=== PATIENT | female | born 1980 | race Caucasian/White ===

== ENCOUNTER 2016-07-25 00:44 | Emergency (ER) | payer BC ==
[~2016-07-25] VITALS: Ht 167.6 cm; Wt 66.7 kg
[~2016-07-25 00:44] MED LIST: ADDE30TA PO; ALBU.5I INH; ALBU6.7H INH; CLON.5 PO; LEXA20TA PO; MONT10TA2 PO; PRED20 PO; SYMB160A INH; THEO300T31 PO; ZITH250T PO
[2016-07-25] MEDS ORDERED: ADDE30XR PO (01:08)
[2016-07-25] MEDS ORDERED: DULE200A INH (01:08)
[2016-07-25] MEDS ORDERED: MONT10TA2 PO (01:08)
[2016-07-25 01:10] VITALS: BP 122/87; PULSE 98; RESP 18; TEMP 98.8; O2SAT 100
--- NOTE | 2016-07-25 02:07 | PD ---
HPI Chief Complaint: Cold / Flu Symptoms Time Seen by Provider: 01:55 Travel History International Travel<30 days: No Contact w/Intl Traveler<30days: No Traveled to known affect area: No History of Present Illness HPI The patient is a 36-year-old female that complains of persistent cough/ congestion for 3 days. She denies any fever. She does have a history of asthma and she has been wheezing. She is very anxious and was too anxious to go to sleep. She does have some back pain on the right and she wants to know if she might have pneumonia because this was a symptom she had earlier with pneumonia. She does not smoke. She is not sexually active. She does have a history of ADHD and is on Adderall. She states she ran out of her albuterol for her nebulizer machine. PFSH Past Medical History ADHD: Yes Asthma: Yes Anxiety: Yes Diminished Hearing: No Respiratory: Yes Immunizations Current: No Tetanus Vaccination: Unknown Influenza Vaccination: No ?: Not LMP: 06/30/16 : 0 Social History Alcohol Use: No Tobacco Use: No (QUIT 2 YRS AGO) Substance Use: No Allergies-Medications (Allergen,Severity, Reaction): Coded Allergies: Common Ragweed (Unverified Allergy, Severe, Sneezing, 07/25/16) Reported Meds & Prescriptions Reported Meds & Active Scripts Active Prednisone 50 Mg Tab 50 Mg PO BID Zithromax (Azithromycin) 500 Mg Tab 500 Mg PO DAILY 5 Days Keflex (Cephalexin) 500 Mg Cap 500 Mg PO Q8H Proair Hfa 8.5 GM Inh (Albuterol Sulfate) 90 Mcg/Act Aer 2 Puff INH Q4-6H PRN 108 mcg/actuation Albuterol Neb (Albuterol Sulfate) 2.5 Mg/3 Ml Neb 2.5 Mg NEB QID NEB Reported Adderall Xr 24 HR (Amphetamine/Dextroamphetamine) 30 Mg Cap 30 Mg PO BID Once daily in the morning. Dulera 120 Act Inh (Mometasone-Formoterol 120 Act Inh) 200-5 Mcg/Act Inh 2 Puff INH BID Singulair (Montelukast Sodium) 10 Mg Tab 10 Mg PO HS Review of Systems Except as stated in HPI: all other systems reviewed are Neg Physical Exam Narrative GENERAL: The patient is anxious, alert and minimal respiratory distress. Her vital signs show blood pressure 142/87 but are otherwise normal. SKIN: Warm and dry. HEAD: Atraumatic. Normocephalic. EYES: Pupils equal and round. No scleral icterus. No injection or drainage. ENT: No nasal bleeding or discharge. Mucous membranes pink and moist. NECK: Trachea midline. No JVD. CARDIOVASCULAR: Regular rate and rhythm. No murmur appreciated. RESPIRATORY: No accessory muscle use. A few widely scattered wheezes are heard in all lung pineda.. Breath sounds equal bilaterally. GASTROINTESTINAL: Abdomen soft, non-tender, nondistended. Hepatic and splenic margins not palpable. MUSCULOSKELETAL: No obvious deformities. No clubbing. No cyanosis. No edema. NEUROLOGICAL: Awake and alert. No obvious cranial nerve deficits. Motor grossly within normal limits. Normal speech. PSYCHIATRIC: Appropriate mood and affect; insight and judgment normal. Data Data Last Documented VS Vital Signs Date Time Temp Pulse Resp B/P Pulse Ox O2 Delivery O2 Flow Rate FiO2 07/25/16 02:16 96 18 113/77 96 Room Air 07/25/16 01:10 98.8 Orders Albuterol-Ipratropium Neb (Duoneb Neb) (07/25/16 02:15) Prednisone (Deltasone) (07/25/16 02:15) Chest, Pa & Lat (07/25/16 02:02) Blood Culture (07/25/16 02:49) Ceftriaxone Inj (Rocephin Inj) (07/25/16 03:00) Azithromycin (Zithromax) (07/25/16 03:00) MDM Medical Decision Making Medical Screen Exam Complete: Yes Emergency Medical Condition: Yes Medical Record Reviewed: Yes Interpretation(s) The chest x-ray shows a right upper lobe pneumonia. Differential Diagnosis Anxiety reaction, acute asthma, pneumonia, bronchitis Narrative Course The patient has a right upper lobe pneumonia. She is also quite anxious. She was offered admission but strongly declined. She is told that she is welcome to return if she wants to be admitted at a later time if she finds that she is not doing well at home. We gave her Rocephin 1 g IV as well as Zithromax 500 mg by mouth here. She will continue at home with Keflex 500 mg 3 times daily for 10 days and Zithromax 500 mg daily for 5 days. She should follow-up with her primary care physician this week. Diagnosis Primary Impression: Right upper lobe pneumonia Additional Impression: Anxiety Additional Instructions: You should follow-up with your primary care physician this week. The Keflex is 3 times daily for 10 days and the Zithromax is one tablet daily for 5 days. The prednisone is one tablet twice daily for 4 days followed by one tablet once daily for 4 days. If worse, return to the emergency department. Med/Other Pt SpecificInfo: Prescription(s) given Scripts Prednisone 50 Mg Tab50 Mg PO BID #12 TAB Ref 0 Prov:Tim Watson MD 07/25/16 Azithromycin (Zithromax)500 Mg [id number] Mg PO DAILY 5 Days Ref 0 Prov:Tim Watson MD 07/25/16 Cephalexin (Keflex)500 Mg [id number] Mg PO Q8H #30 CAP Ref 0 Prov:Tim Watson MD 07/25/16 Albuterol 8.5 GM Inh (Proair Hfa 8.5 GM Inh)90 Mcg/Act Aer2 Puff INH Q4-6H PRN ( SHORTNESS OF BREATH) #1 INHALER Ref 0 108 mcg/actuation Prov:Tim Watson MD 07/25/16 Albuterol Neb 2.5 Mg/3 Ml Neb2.5 Mg NEB QID NEB #60 NEBULE Ref 0 Prov:Tim Watson MD 07/25/16 Disposition: 01 DISCHARGE HOME Condition: Stable Tim Watson MD Jul 25, 2016 02:07
[2016-07-25] MEDS ORDERED: ALBU0.08 NEB (02:09)
[2016-07-25] MEDS ORDERED: predniSONE 20 MG TAB PO ONE (02:15)
[2016-07-25 02:16] VITALS: BP 113/77; PULSE 96; RESP 18; O2SAT 96
[2016-07-25] MEDS: RESP: ALBUTEROL 2.5 MG/IPRATROPIUM 0.5 MG NEB (SCH) INH (02:21)
--- NOTE | 2016-07-25 02:32 | RADHPO ---
EXAM DATE/TIME: 07/25/2016 02:05 [facility] COMPARISON: No previous studies available for comparison. INDICATIONS : Patient states cough. MEDICAL HISTORY : Asthma SURGICAL HISTORY : None. ENCOUNTER: Initial ACUITY: 3 days PAIN SCORE: 0/10 LOCATION: Bilateral chest FINDINGS: PA and lateral views of the chest show subtle opacity within the right upper lobe. Remaining lungs ar e clear. Lungs are hyperaerated. No effusions. Heart is normal in size. Bony structures are unremarka ble. CONCLUSION: Right upper lobe infiltrate. Hyperaeration. Sourav Tran Jr., MD on July 25, 2016 at 2:30 Board Certified Radiologist. This report was verified electronically.
[2016-07-25] MEDS ORDERED: ALBUAER3 INH (02:52)
[2016-07-25] MEDS ORDERED: ZITH500T PO (02:52)
[2016-07-25] MEDS ORDERED: CEPH-460 PO (02:52)
[2016-07-25] MEDS ORDERED: PRED50 PO (02:55)
[2016-07-25] MEDS ORDERED: cefTRIAXone INJ 1,000 MG in SODIUM CHLORIDE 0.9% INJ 100 ML IV ONE (03:00)
[2016-07-25] MEDS ORDERED: AZITHROMYCIN 250 MG TAB PO ONE (03:00)
[2016-07-25 03:11] VITALS: BP 116/74; PULSE 94; RESP 18; O2SAT 96
== END 2016-07-25 03:49 | disposition home or self-care (01) ==
LOC: PHED 00:44
DX: J18.9 Pneumonia, unspecified organism (principal); F41.9 Anxiety disorder, unspecified; J45.909 Unspecified asthma, uncomplicated
CPT/HCPCS: 71020; 87040; 94640; 94664; 96365; 99283; J0696; J7512

== ENCOUNTER 2016-09-24 12:01 | Emergency (ER) | payer BC ==
[~2016-09-24 12:01] MED LIST changes: -ADDE30TA PO; +ADDE30XR PO; -ALBU.5I INH; +ALBU0.08 NEB; -ALBU6.7H INH; +ALBUAER3 INH; +CEPH-460 PO; -CLON.5 PO; +DULE200A INH; -LEXA20TA PO; -PRED20 PO; +PRED50 PO; -SYMB160A INH; -THEO300T31 PO; -ZITH250T PO; +ZITH500T PO
[2016-09-24 12:32] VITALS: BP 116/79; PULSE 98; RESP 18; TEMP 98.7; O2SAT 98
[2016-09-24] MEDS ORDERED: ZYRT10CA PO (13:05)
--- NOTE | 2016-09-24 13:25 | PD ---
HPI Chief Complaint: Cold / Flu Symptoms Time Seen by Provider: 13:18 Travel History International Travel<30 days: No Contact w/Intl Traveler<30days: No Traveled to known affect area: No History of Present Illness HPI 36-year-old female with asthma presents for evaluation of cough and low-grade fevers. Symptoms started 5 days ago. The cough is productive. She reports that the maximum temperature that she has recorded as 99.8. She has been using her albuterol medication with some relief. Denies recent travel. She does not use tobacco products. It appears that this patient was treated for a right upper lobe pneumonia here in July. She has no other complaints. PFSH Past Medical History ADHD: Yes Asthma: Yes Anxiety: Yes Diminished Hearing: No Psychiatric: Yes (ADD) Respiratory: Yes Immunizations Current: No ?: Not : 0 Social History Alcohol Use: Yes (OCC) Tobacco Use: No (QUIT 2 YRS AGO) Substance Use: No Allergies-Medications (Allergen,Severity, Reaction): Coded Allergies: Common Ragweed (Unverified Allergy, Severe, Sneezing, 09/24/16) Reported Meds & Prescriptions Reported Meds & Active Scripts Active Reported Zyrtec Allergy (Cetirizine HCl) 10 Mg Cap 10 Mg PO DAILY Adderall Xr 24 HR (Amphetamine/Dextroamphetamine) 30 Mg Cap 30 Mg PO BID Once daily in the morning. Dulera 120 Act Inh (Mometasone-Formoterol 120 Act Inh) 200-5 Mcg/Act Inh 2 Puff INH BID Singulair (Montelukast Sodium) 10 Mg Tab 10 Mg PO HS Review of Systems Except as stated in HPI: all other systems reviewed are Neg Physical Exam Narrative GENERAL: Well developed well-nourished female in no acute distress SKIN: Warm and dry. HEAD: Atraumatic. Normocephalic. EYES: Pupils equal and round. No scleral icterus. No injection or drainage. ENT: No nasal bleeding or discharge. Mucous membranes pink and moist. No oral pharyngeal erythema or exudate. NECK: Trachea midline. No JVD. No no lymphadenopathy. CARDIOVASCULAR: Regular rate and rhythm. No murmur appreciated. RESPIRATORY: No accessory muscle use. Diffuse wheezing. GASTROINTESTINAL: Abdomen soft, non-tender, nondistended. Hepatic and splenic margins not palpable. MUSCULOSKELETAL: No obvious deformities. No clubbing. No cyanosis. No edema. Data Data Last Documented VS Vital Signs Date Time Temp Pulse Resp B/P Pulse Ox O2 Delivery O2 Flow Rate FiO2 09/24/16 12:32 98.7 98 18 116/79 98 Orders Chest, Single Ap (09/24/16 ) Influenzae A/B Antigen (09/24/16 13:22) Prednisone (Deltasone) (09/24/16 13:30) Albuterol-Ipratropium Neb (Duoneb Neb) (09/24/16 13:30) MDM Medical Decision Making Medical Screen Exam Complete: Yes Emergency Medical Condition: Yes Medical Record Reviewed: Yes Differential Diagnosis Asthma exacerbation, influenza, pneumonia, bronchitis, reactive airway disease Narrative Course 36 year old female with 5 days of cough and low-grade fever. On examination she has diffuse wheezing. Plan is for chest x-ray, influenza antigen, prednisone and DuoNeb therapy. Chest x-ray and influenza antigen are both negative. The patient appears to be having an asthma exacerbation. The patient is being discharged with refills of her albuterol nebulizer and inhaler as well as a short course of prednisone and a refill of her singular. Diagnosis Primary Impression: Asthma exacerbation Additional Instructions: Medication as prescribed. Follow-up with primary care physician as needed. Return for any acutely new or worsening symptoms. Med/Other Pt SpecificInfo: Prescription(s) given Scripts Prednisone 20 Mg Tab20 Mg PO BID 5 Days Ref 0 Prov:Milton Bonilla MD 09/24/16 Montelukast (Singulair)10 Mg Tab10 Mg PO HS 60 Days Ref 0 Prov:Milton Bonilla MD 09/24/16 Albuterol Neb 2.5 Mg/3 Ml Neb2.5 Mg NEB Q4HR NEB #60 NEBULE Ref 0 While awake Prov:Milton Bonilla MD 09/24/16 Albuterol 8.5 GM Inh (Proair Hfa 8.5 GM Inh)90 Mcg/Act Aer2 Puff INH Q4-6H PRN ( SHORTNESS OF BREATH) #1 INHALER Ref 0 108 mcg/actuation Prov:Milton Bonilla MD 09/24/16 Disposition: 01 DISCHARGE HOME Condition: Stable Lino Montana Sep 24, 2016 13:25
[2016-09-24] MEDS ORDERED: predniSONE 20 MG TAB PO ONE (13:30)
[2016-09-24] MEDS: RESP: ALBUTEROL 2.5 MG/IPRATROPIUM 0.5 MG NEB (SCH) INH (13:38)
--- NOTE | 2016-09-24 14:08 | RADHPO ---
EXAM DATE/TIME: 09/24/2016 13:56 [facility] COMPARISON: CHEST SINGLE AP, July 14, 2014, 7:19. INDICATIONS : Cough MEDICAL HISTORY : None. SURGICAL HISTORY : None. ENCOUNTER: Initial ACUITY: 4 - 6 days PAIN SCORE: 8/10 LOCATION: Bilateral chest FINDINGS: Upright PA view of the chest demonstrates a normal-sized cardiac silhouette. No effusion, consolidati on, or pneumothorax is visualized. The bones and soft tissues demonstrate no acute abnormality. CONCLUSION: No acute cardiopulmonary abnormality is identified. Rory Belcher MD on September 24, 2016 at 14:06 Board Certified Radiologist. This report was verified electronically.
[2016-09-24] MEDS ORDERED: ALBU0.08 NEB (14:18)
[2016-09-24] MEDS ORDERED: ALBUAER3 INH (14:18)
[2016-09-24] MEDS ORDERED: PRED20 PO (14:18)
[2016-09-24] MEDS ORDERED: MONT10TA2 PO (14:18)
== END 2016-09-24 14:27 | disposition home or self-care (01) ==
LOC: PHEFT 12:01
DX: J45.901 Unspecified asthma with (acute) exacerbation (principal); Z87.891 Personal history of nicotine dependence
CPT/HCPCS: 71010; 87804; 94640; 94664; 99283; J7512

== ENCOUNTER 2017-06-06 17:55 | Emergency (ER) | payer BC ==
[~2017-06-06] VITALS: Ht 167.6 cm; Wt 61.0 kg
[~2017-06-06 17:55] MED LIST changes: -CEPH-460 PO; +PRED20 PO; -PRED50 PO; -ZITH500T PO; +ZYRT10CA PO
[2017-06-06 18:03] VITALS: BP 118/74; PULSE 98; RESP 16; TEMP 97.9; O2SAT 100
[2017-06-06] MEDS ORDERED: SYMB160A INH (18:22)
[2017-06-06] MEDS ORDERED: ADDE20XR PO (18:22)
[2017-06-06] MEDS ORDERED: XANA1TAB2 PO (18:22)
[2017-06-06] MEDS ORDERED: BACT800T5 PO (19:32)
[2017-06-06] MEDS ORDERED: MUPI2%T TOPICAL (19:32)
--- NOTE | 2017-06-06 19:33 | PD ---
HPI Chief Complaint: Skin Problem Time Seen by Provider: 18:50 Travel History International Travel<30 days: No Contact w/Intl Traveler<30days: No Traveled to known affect area: No History of Present Illness HPI 36-year-old female here for evaluation of abscess to the mons pubis 2 days. Patient reports increased pain and swelling at the site of an infected hair follicle. She denies fever or chills. She reports similar symptoms in the past with abscesses. Symptom severity is moderate. No alleviating factors. PFSH Past Medical History ADHD: Yes Asthma: Yes Anxiety: Yes Diminished Hearing: No Psychiatric: Yes (ADD) Respiratory: Yes Immunizations Current: No Tetanus Vaccination: Unknown Influenza Vaccination: No ?: Not LMP: 05/22/2017 : 0 Social History Alcohol Use: Yes (occ) Tobacco Use: No (QUIT 2 YRS AGO) Substance Use: No Allergies-Medications (Allergen,Severity, Reaction): Coded Allergies: ragweed pollen (Unverified Allergy, Severe, Sneezing, 06/06/17) Reported Meds & Prescriptions Reported Meds & Active Scripts Active Albuterol Neb (Albuterol Sulfate) 2.5 Mg/3 Ml Neb 2.5 Mg NEB Q4HR NEB While awake Proair Hfa 8.5 GM Inh (Albuterol Sulfate) 90 Mcg/Act Aer 2 Puff INH Q4-6H PRN 108 mcg/actuation Reported Symbicort Inh (Budesonide/Formoterol Fumarate) 160-4.5 Mcg/Act Aero 2 Puff INH Q12HR Xanax (Alprazolam) 1 Mg Tab 1 Mg PO Q6H PRN Adderall Xr 24 HR (Amphetamine/Dextroamphetamine) 20 Mg Cap 20 Mg PO BID Once daily in the morning. Singulair (Montelukast Sodium) 10 Mg Tab 10 Mg PO HS Review of Systems Except as stated in HPI: all other systems reviewed are Neg General / Constitutional: No: Fever Physical Exam Narrative GENERAL: Well-nourished, well-developed patient. SKIN: Focused skin assessment warm/dry. 3 cm diameter area of erythema, induration with central fluctuance on the mons pubis. HEAD: Normocephalic. EYES: No scleral icterus. No injection or drainage. NECK: Supple, trachea midline. No JVD or lymphadenopathy. CARDIOVASCULAR: Regular rate and rhythm without murmurs, gallops, or rubs. RESPIRATORY: Breath sounds equal bilaterally. No accessory muscle use. GASTROINTESTINAL: Abdomen soft, non-tender, nondistended. Data Data Last Documented VS Vital Signs Date Time Temp Pulse Resp B/P (MAP) Pulse Ox O2 Delivery O2 Flow Rate FiO2 06/06/17 18:03 97.9 98 16 118/74 (89) 100 MDM Medical Decision Making Medical Screen Exam Complete: Yes Emergency Medical Condition: Yes Differential Diagnosis Abscess, cellulitis, folliculitis Narrative Course 36-year-old female here for evaluation of abscess to her mons pubis 2 days. On exam patient has a 3 cm diameter area of erythema, induration with central fluctuance. I&D performed. Patient tolerated procedure well. Procedures Procedure Narrative INCISION AND DRAINAGE OF ABSCESS: The area was prepped and was sterilely draped. A subcutaneous wheal of 1 % Xylocaine with epi with a total number 2 mL was used to anesthetize the area properly. A number 11 scalpel was used to make a 0.5-cm incision across the area of the abscess. The abscess was drained , complex loculations were broken down, and irrigated with normal saline. Sterile dressing applied. Patient advised to have packing removed in two days. Diagnosis Primary Impression: Abscess Referrals: [facility] Additional Instructions: Apply warm compresses to the area several times per day. Take the antibiotics as prescribed. Follow up for recheck in 2 days Scripts Mupirocin Topical (Bactroban Topical) 22 Gm Cream 1 APPLIC TOPICAL BID for Mgmt Bacterial Infection, #1 TUBE 0 Refills Prov: Steffi Cuba 06/06/17 Sulfamethoxazole-Trimethoprim (Bactrim DS) 800-160 Mg Tab 1 TAB PO BID for Infection, #20 TAB 0 Refills Prov: Steffi Cuba 06/06/17 Disposition: 01 DISCHARGE HOME Condition: Stable Steffi Cuba Jun 06, 2017 19:33
[2017-06-06 19:36] VITALS: BP 115/76; TEMP 97.5
== END 2017-06-06 19:48 | disposition home or self-care (01) ==
LOC: PHED 17:55
DX: L02.214 Cutaneous abscess of groin (principal); J45.909 Unspecified asthma, uncomplicated
CPT/HCPCS: 10061

== ENCOUNTER 2017-09-04 00:37 | Emergency (ER) | payer BC ==
[~2017-09-04] VITALS: Ht 167.6 cm; Wt 60.0 kg
[~2017-09-04 00:37] MED LIST changes: +ADDE20XR PO; -ADDE30XR PO; +BACT800T5 PO; -DULE200A INH; +MUPI2%T TOPICAL; -PRED20 PO; +SYMB160A INH; +XANA1TAB2 PO; -ZYRT10CA PO
[2017-09-04 00:41] VITALS: BP 145/74; PULSE 101; RESP 18; TEMP 98.6; O2SAT 98
[2017-09-04] MEDS ORDERED: predniSONE 20 MG TAB PO ONE (01:00)
[2017-09-04] MEDS ORDERED: MONT10TA2 PO (01:01)
[2017-09-04] MEDS ORDERED: ALBUAER3 INH (01:01)
[2017-09-04] MEDS ORDERED: ALBU0.08 NEB (01:01)
[2017-09-04] MEDS ORDERED: PRED-503 PO (01:01)
[2017-09-04] MEDS ORDERED: SYMB160A INH (01:01)
--- NOTE | 2017-09-04 01:07 | PD ---
HPI Chief Complaint: Respiratory Symptoms Time Seen by Provider: 00:53 Travel History International Travel<30 days: No Contact w/Intl Traveler<30days: No Traveled to known affect area: No History of Present Illness HPI 37-year-old white female presents to emergency department with complains of shortness of breath or wheezing. Patient's symptoms of been getting worse over the past week. Patient is out of her medications currently. Patient has a history of asthma. She states that she has not been well controlled lately. She has not been followed by her primary care doctor or molecular biology professor. The patient has recently relocated to [place] from [place]. She states that she takes albuterol and SYBIQourt. She denies tobacco. She denies any recent illness. PFSH Past Medical History Narrative Medical Asthma, anxiety, ADD ADHD: Yes Asthma: Yes Anxiety: Yes Diminished Hearing: No Psychiatric: Yes (ADD) Respiratory: Yes Immunizations Current: No Tetanus Vaccination: < 5 Years ?: Not : 0 Past Surgical History Narrative Surgical Bilateral hand surgery Social History Alcohol Use: Yes (occ) Tobacco Use: No (QUIT 2 YRS AGO) Substance Use: No Allergies-Medications (Allergen,Severity, Reaction): Coded Allergies: ragweed pollen (Unverified Allergy, Severe, Sneezing, 09/04/17) Reported Meds & Prescriptions Reported Meds & Active Scripts Active Deltasone (Prednisone) 20 Mg Tab 20 Mg PO BID 5 Days Symbicort Inh (Budesonide/Formoterol Fumarate) 160-4.5 Mcg/Act Aero 2 Puff INH Q12HR Albuterol Neb (Albuterol Sulfate) 2.5 Mg/3 Ml Neb 2.5 Mg NEB Q4HR NEB While awake Proair Hfa 8.5 GM Inh (Albuterol Sulfate) 90 Mcg/Act Aer 2 Puff INH Q4-6H PRN 108 mcg/actuation Singulair (Montelukast Sodium) 10 Mg Tab 10 Mg PO HS Bactroban Topical (Mupirocin) 22 Gm Cream 1 Applic TOPICAL BID Bactrim DS (Sulfamethoxazole-Trimethoprim) 800-160 Mg Tab 1 Tab PO BID Reported Xanax (Alprazolam) 1 Mg Tab 1 Mg PO Q6H PRN Adderall Xr 24 HR (Amphetamine/Dextroamphetamine) 20 Mg Cap 20 Mg PO BID Once daily in the morning. Review of Systems Except as stated in HPI: all other systems reviewed are Neg Physical Exam Narrative GENERAL: Well-developed, well-nourished in no acute distress. Nontoxic appearing. HEAD: Normocephalic, atraumatic. EYES: Pupils equal round and reactive. Extraocular motions intact. No scleral icterus. No injection or drainage. ENT: TMs clear without erythema. The external auditory canals clear. Nose: clear . Posterior pharynx is pink and moist. No tonsillar edema or exudate. Uvula midline. Airway patent. NECK: Trachea midline.Supple, nontender, moves head freely. No central bony tenderness or spasm. CARDIOVASCULAR: Regular rate and rhythm without murmurs, gallops, or rubs. RESPIRATORY: Patient has extra wheezes. No Rales or rhonchi. Speaks in full complete sentences. GASTROINTESTINAL: Abdomen soft, non-tender, nondistended. No hepato-splenomegaly , or palpable masses. No guarding. EXTREMITIES: No clubbing, cyanosis, or edema. No joint tenderness, effusion, or edema noted. BACK: Nontender without deformity or crepitance. No flank tenderness. Data Data Last Documented VS Vital Signs Date Time Temp Pulse Resp B/P (MAP) Pulse Ox O2 Delivery O2 Flow Rate FiO2 09/04/17 00:41 98.6 101 18 145/74 (97) 98 Orders Orders Prednisone (Deltasone) (09/04/17 01:00) Albuterol-Ipratropium Neb (Duoneb Neb) (09/04/17 01:00) MDM Medical Decision Making Medical Screen Exam Complete: Yes Emergency Medical Condition: Yes Medical Record Reviewed: Yes Differential Diagnosis MDM: High Differential diagnoses: Pneumonia, bronchitis, URI, asthma, RAD, legionnaire's disease, SARS, ARDS, influenza, bronchiolitis, RSV,PE,CHF Narrative Course This is acute asthma exacerbation. Patient is given 60 mg prednisone by mouth. Patient's given 2 albuterol and Atrovent treatments. The patient is reexamined. Her wheezing is resolved. Her shortness of breath is much improved. Patient medically stable for discharge. Diagnosis Primary Impression: Asthma exacerbation Qualified Codes: J45.21 - Mild intermittent asthma with (acute) exacerbation Patient Instructions: General Instructions Additional Instructions: Rest. Increase fluids. Tylenol and Advil. Medications as directed. Follow-up with a molecular biology professor in one week. Followup with your Dr. in one week. Return to the ER for any problems. Med/Other Pt SpecificInfo: Prescription(s) given Scripts Prednisone (Deltasone) 20 Mg Tab 20 MG PO BID for 5 Days, #10 TAB 0 Refills Prov: Roxana Matute MD 09/04/17 Budesonide-Formoterol Inh (Symbicort Inh) 160-4.5 Mcg/Act Aero 2 PUFF INH Q12HR, #1 INHALER 0 Refills Prov: Roxana Matute MD 09/04/17 Albuterol Neb (Albuterol Neb) 2.5 Mg/3 Ml Neb 2.5 MG NEB Q4HR NEB for Breathing Treatment, #60 NEBULE 0 Refills While awake Prov: Roxana Matute MD 09/04/17 Albuterol 8.5 GM Inh (Proair Hfa 8.5 GM Inh) 90 Mcg/Act Aer 2 PUFF INH Q4-6H Y for SHORTNESS OF BREATH, #1 INHALER 0 Refills 108 mcg/actuation Prov: Roxana Matute MD 09/04/17 Montelukast (Singulair) 10 Mg Tab 10 MG PO HS, #30 TAB 0 Refills Prov: Roxana Matute MD 09/04/17 Disposition: 01 DISCHARGE HOME Condition: Stable Casey Chavarria Sep 04, 2017 01:07
[2017-09-04] MEDS: RESP: ALBUTEROL 2.5 MG/IPRATROPIUM 0.5 MG NEB (SCH) INH (01:16)
== END 2017-09-04 05:58 | disposition home or self-care (01) ==
LOC: NEPD 00:37
DX: J45.901 Unspecified asthma with (acute) exacerbation (principal); F41.9 Anxiety disorder, unspecified; F90.9 Attention-deficit hyperactivity disorder, unspecified type; Z79.899 Other long term (current) drug therapy
CPT/HCPCS: 94640; 94664; 99283; J7512

== ENCOUNTER 2017-11-24 03:37 | Emergency (ER) | payer BC ==
[~2017-11-24] VITALS: Ht 167.6 cm; Wt 70.5 kg
[~2017-11-24 03:37] MED LIST changes: -BACT800T5 PO
[2017-11-24 03:40] VITALS: BP 125/84; PULSE 99; RESP 18; TEMP 98.1; O2SAT 100
[2017-11-24 04:43] LABS: BACTERIA, URINE FEW /hpf; BILIRUBIN, URINE NEG (NEG); BLOOD, URINE NEG (NEG); GLUCOSE,URINE NEG (NEG); KETONE, URINE NEG (NEG); MUCUS URINE FEW /lpf (OCC); NITRITE,URINE NEG (NEG); PH, URINE 5.5 (5.0-8.5); SQUAMOUS EPITHELIAL CELL URINE 19 /hpf (0-5); TRANSITIONAL EPI CELLS, URINE <1 /hpf; URINE COLOR YELLOW (YELLW/STRAW); URINE LEUKOCYTE ESTERASE SMALL (NEG)
--- NOTE | 2017-11-24 04:49 | PD ---
HPI Chief Complaint: Flank/Kidney Pain Time Seen by Provider: 04:03 Travel History International Travel<30 days: No Contact w/Intl Traveler<30days: No Traveled to known affect area: No History of Present Illness HPI 37-year-old female complains of left flank pain. Patient states that the pain started 2 days ago. Patient states that the pain localized to left flank and left low back area. Patient denies any pain radiation. Patient states that she has urinary frequency. Patient denies any dysuria. Patient denies any vaginal discharge or bleeding. Patient states that the pain is worse with bending over movement of the low back area. Patient denies any pain radiation to the leg. Patient denies any recent injury. On a scale of 1-10 the pain is a 7. Patient denies any history kidney stone in the past. PFSH Past Medical History ADHD: Yes Asthma: Yes Anxiety: Yes Diminished Hearing: No Psychiatric: Yes (ADD) Respiratory: Yes (asthma) Immunizations Current: No ?: Unknown : 0 Social History Alcohol Use: Yes (occ) Tobacco Use: No (Vaping since 2008) Substance Use: No Allergies-Medications (Allergen,Severity, Reaction): Coded Allergies: ragweed pollen (Unverified Allergy, Severe, Sneezing, 09/04/17) Reported Meds & Prescriptions Reported Meds & Active Scripts Active Symbicort Inh (Budesonide/Formoterol Fumarate) 160-4.5 Mcg/Act Aero 2 Puff INH Q12HR Albuterol Neb (Albuterol Sulfate) 2.5 Mg/3 Ml Neb 2.5 Mg NEB Q4HR NEB While awake Proair Hfa 8.5 GM Inh (Albuterol Sulfate) 90 Mcg/Act Aer 2 Puff INH Q4-6H PRN 108 mcg/actuation Singulair (Montelukast Sodium) 10 Mg Tab 10 Mg PO HS Bactroban Topical (Mupirocin) 22 Gm Cream 1 Applic TOPICAL BID Reported Xanax (Alprazolam) 1 Mg Tab 1 Mg PO Q6H PRN Adderall Xr 24 HR (Amphetamine/Dextroamphetamine) 20 Mg Cap 20 Mg PO BID Once daily in the morning. Review of Systems General / Constitutional: No: Fever Eyes: No: Visual changes HENT: No: Headaches Cardiovascular: No: Chest Pain or Discomfort Respiratory: No: Shortness of Breath Gastrointestinal: No: Abdominal Pain Genitourinary: No: Dysuria Musculoskeletal: No: Pain Skin: No Rash Neurologic: No: Weakness Psychiatric: No: Depression Endocrine: No: Polydipsia Hematologic/Lymphatic: No: Easy Bruising Physical Exam Narrative GENERAL: Well-nourished, well-developed patient. SKIN: Focused skin assessment warm/dry. HEAD: Normocephalic. EYES: No scleral icterus. No injection or drainage. NECK: Supple, trachea midline. No JVD or lymphadenopathy. CARDIOVASCULAR: Regular rate and rhythm without murmurs, gallops, or rubs. RESPIRATORY: Breath sounds equal bilaterally. No accessory muscle use. GASTROINTESTINAL: Abdomen soft, non-tender, nondistended. MUSCULOSKELETAL: No cyanosis, or edema. BACK: Patient has moderate tenderness to palpation lumbar area, without obvious deformity. No CVA tenderness. Negative straight leg raising. Neurologic exam normal. Data Data Last Documented VS Vital Signs Date Time Temp Pulse Resp B/P (MAP) Pulse Ox O2 Delivery O2 Flow Rate FiO2 11/24/17 03:40 98.1 99 18 125/84 (98) 100 Orders Orders Urinalysis - C+S If Indicated (11/24/17 04:13) Ct Abd/Pel W/O Iv Contrast (11/24/17 04:13) Ed Urine Pregnancytest Poc (11/24/17 04:13) Labs Laboratory Tests Test 11/24/17 02:20 Urine Color YELLOW Urine Turbidity HAZY Urine pH 5.5 Urine Specific [place] 1.027 Urine Protein NEG mg/dL Urine Glucose (UA) NEG mg/dL Urine Ketones NEG mg/dL Urine Occult Blood NEG Urine Nitrite NEG Urine Bilirubin NEG Urine Urobilinogen 2.0 MG/DL Urine Leukocyte Esterase SMALL Urine RBC 2 /hpf Urine WBC 4 /hpf Urine Squamous Epithelial Cells 19 /hpf Urine Transitional Epithelial Cells <1 /hpf Urine Bacteria FEW /hpf Urine Mucus FEW /lpf Microscopic Urinalysis Comment CULT NOT INDICATED MDM Medical Decision Making Medical Screen Exam Complete: Yes Emergency Medical Condition: Yes Interpretation(s) 4:48 PM. UA is negative. Urine test negative. 6:[address] scan abdomen pelvis negative acute pathology. Differential Diagnosis Differential diagnosis including musculoskeletal, lumbar spine injury, nephrolithiasis, pyelonephritis. Narrative Course 37-year-old female with left low back pain. Diagnosis Primary Impression: Left flank pain Patient Instructions: General Instructions Additional Instructions: Take medication as needed for pain. Moist heat. Follow-up with local physician. Med/Other Pt SpecificInfo: Prescription(s) given Scripts Methocarbamol (Robaxin) 750 Mg Tab 750 MG PO QID for Muscle Spasm, #40 TAB 0 Refills Prov: Harpal Manzo MD 11/24/17 Meloxicam (Mobic) 15 Mg Tab 15 MG PO DAILY for Pain, #20 TAB 0 Refills Prov: Harpal Manzo MD 11/24/17 Disposition: 01 DISCHARGE HOME Condition: Stable Harpal Manzo MD November 24, 2017 04:49
--- NOTE | 2017-11-24 06:39 | RADRPT ---
EXAM DATE/TIME: 11/24/2017 06:20 [facility] COMPARISON: No previous studies available for comparison. INDICATIONS : Left flank pain. ORAL CONTRAST: No oral contrast ingested. RADIATION DOSE: 5.04 CTDIvol (mGy) MEDICAL HISTORY : Asthma SURGICAL HISTORY : None. ENCOUNTER: Initial ACUITY: 1 day PAIN SCALE: 7/10 LOCATION: abdomen TECHNIQUE: Volumetric scanning of the abdomen and pelvis was performed. Using automated exposure control and ad justment of the mA and/or kV according to patient size, radiation dose was kept as low as reasonably achievable to obtain optimal diagnostic quality images. DICOM format image data is available electro nically for review and comparison. FINDINGS: LOWER LUNGS: The visualized lower lungs are clear. LIVER: Visualized portions are grossly unremarkable. There are calcified gallstones in the gallbladder. SPLEEN: Normal size without lesion. PANCREAS: Within normal limits. KIDNEYS: Normal in size and shape. There is no mass, stone, or hydronephrosis. ADRENAL GLANDS: Within normal limits. VASCULAR: There is no aortic aneurysm. BOWEL/MESENTERY: The stomach, small bowel, and colon demonstrate no acute abnormality. There is no free intraperitone al air or fluid. ABDOMINAL WALL: Within normal limits. RETROPERITONEUM: There is no lymphadenopathy. BLADDER: No wall thickening or mass. REPRODUCTIVE: Within normal limits. INGUINAL: There is no lymphadenopathy or hernia. MUSCULOSKELETAL: Within normal limits for patient age. CONCLUSION: No evidence of kidney stone or hydronephrosis. No specific explanation for left flank pain. Rory Alvarenga MD on November 24, 2017 at 6:33 Board Certified Radiologist. This report was verified electronically.
[2017-11-24] MEDS ORDERED: MOBI15TA PO (06:47)
[2017-11-24] MEDS ORDERED: ROBA750T PO (06:47)
== END 2017-11-24 08:45 | disposition home or self-care (01) ==
LOC: NEPE 03:37
DX: R10.9 Unspecified abdominal pain (principal); F90.9 Attention-deficit hyperactivity disorder, unspecified type; J45.909 Unspecified asthma, uncomplicated
CPT/HCPCS: 74176; 81001; 84703; 99284

== ENCOUNTER 2017-11-27 06:48 | Emergency (ER) | payer BC ==
[~2017-11-27] VITALS: Ht 165.1 cm; Wt 65.0 kg
[~2017-11-27 06:48] MED LIST changes: +MOBI15TA PO; +ROBA750T PO
[2017-11-27] MEDS ORDERED: NALOXONE HCL 0.4 MG/ML AMP ONE (07:08)
[2017-11-27 07:14] VITALS: BP 119/78; PULSE 87; RESP 10; TEMP 97.9; O2SAT 97
[2017-11-27] MEDS ORDERED: NALOXONE HCL 0.4 MG/ML AMP IV PUSH ONE (07:30)
[2017-11-27] MEDS ORDERED: SODIUM CHLOR 0.9% 1000 ML INJ 1,000 ML IV ONE (07:30)
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
--- NOTE | 2017-11-27 08:01 | RADRPT ---
EXAM DATE/TIME: 11/27/2017 07:43 [facility] COMPARISON: CHEST SINGLE AP, September 24, 2016, 13:56. INDICATIONS : Shortness of breath and weakness. MEDICAL HISTORY : Ashtma. SURGICAL HISTORY : None. ENCOUNTER: Initial ACUITY: 1 day PAIN SCORE: 0/10 LOCATION: Bilateral chest FINDINGS: A single view of the chest demonstrates the lungs to be symmetrically aerated without evidence of mas s, infiltrate or effusion. The cardiomediastinal contours are unremarkable. Osseous structures are intact. CONCLUSION: 1. No acute cardiopulmonary disease. John Haywood MD on November 27, 2017 at 7:59 Board Certified Radiologist. This report was verified electronically.
[2017-11-27 08:10] LABS: AUTOMATED NEUTROPHIL # 3.3 TH/MM3 (1.8-7.7); BASOPHIL # 0.1 TH/MM3 (0-0.2); BASOPHIL % 1.4 % (0.0-2.0); EOSINOPHIL % 13.2 % (0.0-4.0); HEMATOCRIT 37.6 % (35.0-46.0); HEMOGLOBIN 12.4 GM/DL (11.6-15.3); LYMPH % 28.8 % (9.0-44.0); LYMPHOCYTE # 2.1 TH/MM3 (1.0-4.8); MEAN CELL VOLUME 89.1 FL (80.0-100.0); MEAN CORPUSCULAR HEMOGLOBIN 29.4 PG (27.0-34.0); MEAN PLATELET VOLUME 7.3 FL (7.0-11.0); MONO % 10.9 % (0.0-8.0); MONOCYTE # 0.8 TH/MM3 (0-0.9); NEUT % 45.7 % (16.0-70.0); PLATELET COUNT 369 TH/MM3 (150-450); RED BLOOD COUNT 4.22 MIL/MM3 (4.00-5.30); RED CELL DISTRIBUTION WIDTH 13.4 % (11.6-17.2); WHITE BLOOD COUNT 7.3 TH/MM3 (4.0-11.0)
[2017-11-27 08:23] LABS: ALBUMIN 3.4 GM/DL (3.4-5.0); AST (GOT) 8 U/L (15-37); BICARBONATE 28.5 MEQ/L (21.0-32.0); BLOOD UREA NITROGEN 17 MG/DL (7-18); CALCIUM 8.9 MG/DL (8.5-10.1); CHLORIDE 107 MEQ/L (98-107); CREATININE 0.87 MG/DL (0.50-1.00); GLOMERULAR FILTRATION RATE 74 ML/MIN (>89); GLUCOSE,RANDOM 88 MG/DL (74-106); SODIUM (NA) 142 MEQ/L (136-145)
[2017-11-27 08:24] LABS: ALT (GPT) 14 U/L (10-53)
[2017-11-27 08:32] LABS: ACETAMINOPHEN 2.8 MCG/ML (10.0-30.0); ALKALINE PHOSPHATASE 60 U/L (45-117); TOTAL BILIRUBIN ADULT 0.2 MG/DL (0.2-1.0); TOTAL PROTEIN 6.6 GM/DL (6.4-8.2)
[2017-11-27 09:35] VITALS: PULSE 84; RESP 18; O2SAT 96
[2017-11-27 11:29] VITALS: PULSE 81; RESP 16; O2SAT 97
[2017-11-27] MEDS ORDERED: NALOXONE HCL 2 MG/2 ML VIAL IV PUSH ONE (11:45)
== END 2017-11-27 12:54 | disposition home or self-care (01) ==
LOC: NEPC 06:48
DX: T40.601A Poisoning by unspecified narcotics, accidental (unintentional), initial encounter (principal); F90.9 Attention-deficit hyperactivity disorder, unspecified type; J45.909 Unspecified asthma, uncomplicated; Z79.899 Other long term (current) drug therapy
CPT/HCPCS: 71045; 80053; 80307; 82550; 83690; 84443; 84703; 85025; 96361; 96374; 99284; J2310; J7030

== ENCOUNTER 2017-12-02 22:46 | Emergency (ER) | payer BC ==
[2017-12-02 22:58] VITALS: PULSE 101; RESP 18; TEMP 97.9; O2SAT 97
[2017-12-02] MEDS ORDERED: CLIN150C14 PO (23:34)
[2017-12-02] MEDS ORDERED: BACT800T5 PO (23:34)
--- NOTE | 2017-12-02 23:40 | PD ---
HPI Chief Complaint: Skin Problem Time Seen by Provider: 23:32 Travel History International Travel<30 days: No Contact w/Intl Traveler<30days: No Traveled to known affect area: No History of Present Illness HPI The patient was seen and examined in the presence of the nurse. This patient complains of an abscess in her right armpit. Duration 3-4 days. Severity is moderate. No fever or drainage. Symptoms have no alleviating factors. No exacerbating factors. PFSH Past Medical History ADHD: Yes Asthma: Yes Anxiety: Yes Diminished Hearing: No Psychiatric: Yes (ADD) Respiratory: Yes Immunizations Current: No ?: Not : 0 Social History Alcohol Use: Yes (occ) Tobacco Use: No (Vaping since 2008) Substance Use: No Allergies-Medications (Allergen,Severity, Reaction): Coded Allergies: ragweed pollen (Unverified Allergy, Severe, Sneezing, 12/02/17) Reported Meds & Prescriptions Reported Meds & Active Scripts Active Clindamycin (Clindamycin HCl) 150 Mg Cap 300 Mg PO Q8HR 7 Days Bactrim DS (Sulfamethoxazole-Trimethoprim) 800-160 Mg Tab 1 Tab PO BID Robaxin (Methocarbamol) 750 Mg Tab 750 Mg PO QID Mobic (Meloxicam) 15 Mg Tab 15 Mg PO DAILY Symbicort Inh (Budesonide/Formoterol Fumarate) 160-4.5 Mcg/Act Aero 2 Puff INH Q12HR Albuterol Neb (Albuterol Sulfate) 2.5 Mg/3 Ml Neb 2.5 Mg NEB Q4HR NEB While awake Proair Hfa 8.5 GM Inh (Albuterol Sulfate) 90 Mcg/Act Aer 2 Puff INH Q4-6H PRN 108 mcg/actuation Singulair (Montelukast Sodium) 10 Mg Tab 10 Mg PO HS Bactroban Topical (Mupirocin) 22 Gm Cream 1 Applic TOPICAL BID Reported Xanax (Alprazolam) 1 Mg Tab 1 Mg PO Q6H PRN Adderall Xr 24 HR (Amphetamine/Dextroamphetamine) 20 Mg Cap 20 Mg PO BID Once daily in the morning. Review of Systems General / Constitutional: No: Fever Eyes: No: Visual changes HENT: No: Headaches Cardiovascular: No: Chest Pain or Discomfort Respiratory: No: Shortness of Breath Gastrointestinal: No: Abdominal Pain Genitourinary: No: Dysuria Musculoskeletal: Positive: Pain Skin: No Rash Neurologic: No: Weakness Psychiatric: No: Depression Endocrine: No: Polydipsia Hematologic/Lymphatic: No: Easy Bruising Physical Exam Narrative GENERAL: Well-nourished, well-developed patient in no apparent distress. SKIN: Focused skin assessment reveals no rash. Skin is Warm and dry. There is an abscess in the right axilla. It is fluctuant but not draining. HEAD: Atraumatic. Normocephalic. EYES: Pupils equal and round. No scleral icterus. No injection or drainage. ENT: No nasal bleeding or discharge. Mucous membranes pink and moist. NECK: Trachea midline. No JVD. CARDIOVASCULAR: Regular rate and rhythm. No murmur appreciated. RESPIRATORY: No accessory muscle use. Clear to auscultation. Breath sounds equal bilaterally. GASTROINTESTINAL: Abdomen soft, non-tender, nondistended. Hepatic and splenic margins not palpable. MUSCULOSKELETAL: No obvious deformities. No clubbing. No cyanosis. No edema. NEUROLOGICAL: Awake and alert. No obvious cranial nerve deficits. Motor grossly within normal limits. Normal speech. PSYCHIATRIC: Appropriate mood and affect; insight and judgment normal. Data Data Last Documented VS Vital Signs Date Time Temp Pulse Resp B/P (MAP) Pulse Ox O2 Delivery O2 Flow Rate FiO2 12/02/17 22:58 97.9 101 18 97 MDM Medical Decision Making Medical Screen Exam Complete: Yes Emergency Medical Condition: Yes Medical Record Reviewed: Yes Differential Diagnosis Abscess, boil, cellulitis Narrative Course I have reviewed the patient's electronic medical record. Procedure note: We discussed incision and drainage procedure. The patient agreed. However, I noticed that the abscess was quite fluctuant and basically starting to drain on its own I gave a bit of gentle pressure and huge quantity of pus exploded out. Culture was obtained I put the wooden end of a Q-tip into the opening and broke up the loculations Further pus was expressed Patient tolerated the procedure well She will use warm compresses. I wrote clindamycin and Bactrim. The patient was advised to follow up with their physician and return if they worsen. Diagnosis Primary Impression: Abscess of right axilla Additional Instructions: The patient was advised to follow up with their physician and return if they worsen. Take antibiotics Use warm compresses Med/Other Pt SpecificInfo: Prescription(s) given Scripts Clindamycin (Clindamycin) 150 Mg Cap 300 MG PO Q8HR for Infection for 7 Days, CAP 0 Refills Prov: Milton Bonilla MD 12/02/17 Sulfamethoxazole-Trimethoprim (Bactrim DS) 800-160 Mg Tab 1 TAB PO BID for Infection, #14 TAB 0 Refills Prov: Milton Bonilla MD 12/02/17 Disposition: 01 DISCHARGE HOME Condition: Stable Milton Bonilla MD December 02, 2017 23:40
== END 2017-12-03 00:47 | disposition home or self-care (01) ==
LOC: NEPD 22:46
DX: L02.411 Cutaneous abscess of right axilla (principal)
CPT/HCPCS: 86403; 87070; 87186; 99283

== ENCOUNTER 2018-01-09 20:05 | Emergency (ER) | payer BC ==
[~2018-01-09] VITALS: Ht 167.6 cm; Wt 65.0 kg
[~2018-01-09 20:05] MED LIST changes: +BACT800T5 PO; +CLIN150C14 PO
[2018-01-09 20:33] VITALS: BP 132/87; PULSE 123; RESP 22; TEMP 99; O2SAT 94
== END 2018-01-09 21:27 | disposition left against medical advice (07) ==
LOC: NED 20:05
DX: R06.02 Shortness of breath (principal); Z53.21 Procedure and treatment not carried out due to patient leaving prior to being seen by health care provider
CPT/HCPCS: 99281